=== PATIENT | female | born 2000 | race Caucasian/White ===

== ENCOUNTER 2021-03-19 15:53 | Emergency (ER) | payer MEDICAID, OTHER ==
[~2021-03-19] VITALS: Ht 167.6 cm; Wt 69.2 kg
[2021-03-19 16:00] VITALS: BP 128/74
--- NOTE | 2021-03-19 16:11 | NUR ---
DROPPED A BOTTLE OF VINEGAR ON RIGHT PINKY FINGER. PINKY IS SWOLLEN WITH BRUSING. PT ABLE TO BEND AT KNUCKLE OF HAND BUT STATES IT IS PAINFUL TO BEND AT OTHER KNUCKLES. DENIES NUMBNESS AND TINGLING.
--- NOTE | 2021-03-19 18:10 | NUR ---
TASK RN: DC EDUCATION PROVIDED, PT DEMONSTRATES UNDERSTANDING. PT AMBULATED STEADILY TO DC WITH RN
== END 2021-03-19 18:12 | disposition home or self-care (01) ==
LOC: ED 18:06
DX: S60.052A Contusion of left little finger without damage to nail, initial encounter (principal); W20.8XXA Other cause of strike by thrown, projected or falling object, initial encounter; Y93.89 Activity, other specified; Y92.009 Unspecified place in unspecified non-institutional (private) residence as the place of occurrence of the external cause; Y99.8 Other external cause status
CPT/HCPCS: 29125; 29130; 99283